=== PATIENT | male | born 1950 | race Caucasian/White ===

== ENCOUNTER → 2020-12-29 | Outpatient (CLI) | payer MEDICARE ==
[~2020-12-29] MED LIST: ZANTAC 150MG T150 M1 PO
== END ==
LOC: M.ULTRA 10:08
PROVIDERS: ATTEND Family Medicine
DX: I70.0 Atherosclerosis of aorta (principal); F17.200 Nicotine dependence, unspecified, uncomplicated

== ENCOUNTER → 2021-01-17 | Outpatient (CLI) | payer MEDICARE | LOC: M.CT 13:45 | PROVIDERS: ATTEND Family Medicine | DX: J84.10 Pulmonary fibrosis, unspecified (principal); F17.200 Nicotine dependence, unspecified, uncomplicated; I70.0 Atherosclerosis of aorta; I25.10 Atherosclerotic heart disease of native coronary artery without angina pectoris; R91.1 Solitary pulmonary nodule ==

== ENCOUNTER → 2021-04-11 | Outpatient (CLI) | payer MEDICARE ==
[2021-04-11 13:47] LABS: ALBUMIN 3.6 g/dL (3.4-5.0); CREATININE 0.8 mg/dL (0.6-1.3); POTASSIUM 4.5 mmol/L (3.5-5.1); TOTAL BILIRUBIN 0.6 mg/dL (<0.1-1.0); TOTAL PROTEIN 7.2 g/dL (6.4-8.2)
[2021-04-13 11:09] LABS: HCV QUANT BY PCR 5330000 IU/mL (())
== END ==
LOC: M.LAB 13:07
PROVIDERS: ATTEND Family Medicine
DX: R76.8 Other specified abnormal immunological findings in serum (principal)

== ENCOUNTER → 2021-05-05 | Outpatient (CLI) | payer MEDICARE | LOC: M.ULTRA 09:25 | PROVIDERS: ATTEND Nurse Practitioner Adult Health | DX: B19.20 Unspecified viral hepatitis C without hepatic coma (principal) ==

== ENCOUNTER 2021-08-27 14:12 | Emergency (ER) | payer MEDICARE ==
[~2021-08-27] VITALS: Ht 172.7 cm; Wt 68.0 kg
[2021-08-27] MEDS ORDERED: EPCLUSA 400 MG1 EACH PO (14:27)
[2021-08-27] MEDS ORDERED: OMEPRAZOLE10 MG PO (14:27)
[2021-08-27 15:23] LABS: ABSOLUTE BASOPHILS 0.1 thou/uL (0.0-0.2); ABSOLUTE EOSINOPHILS 0.3 thou/uL (0.0-0.7); ABSOLUTE LYMPHOCYTES 1.9 thou/uL (0.8-5.3); ABSOLUTE MONOCYTES 0.9 thou/uL (0.0-1.2); ABSOLUTE NEUTROPHILS 6.4 thou/uL (1.6-8.1); BASOPHILS 0.7 %; EOSINOPHILS 2.8 %; LYMPHOCYTES 20.2 %; MCHC 35.7 g/dL (28.0-37.0); MCV 95.1 fL (80.0-100.0); MONOCYTES 9.3 %; MPV 6.6 fl. (7.2-11.1); NUCLEATED RBCS 0 /100WBC; PLATELET COUNT* 356 thou/uL (150-400); RBC 4.42 mil/uL (4.50-6.00); WBC 9.6 thou/uL (4.0-11.0)
[2021-08-27 15:32] LABS: CALCIUM 9.1 mg/dL (8.5-10.1); CREATININE 0.7 mg/dL (0.6-1.3); POTASSIUM 4.1 mmol/L (3.5-5.1)
[2021-08-27 15:37] LABS: ALBUMIN 3.6 g/dL (3.4-5.0); TOTAL BILIRUBIN 0.5 mg/dL (<0.1-1.0); TOTAL PROTEIN 7.4 g/dL (6.4-8.2)
[2021-08-27 15:39] LABS: URINE BILIRUBIN NEGATIVE (Negative); URINE BLOOD NEGATIVE (Negative); URINE CLARITY CLEAR; URINE COLOR YELLOW; URINE GLUCOSE-RANDOM NEGATIVE (Negative); URINE KETONES NEGATIVE (Negative); URINE LEUKOCYTES-REFLEX NEGATIVE (Negative); URINE NITRITE-REFLEX NEGATIVE (Negative); URINE PROTEIN NEGATIVE (Negative); URINE SPECIFIC GRAVITY 1.015 (1.005-1.030); URINE UROBILINOGEN 0.2 E.U./dl (0.2-1.0)
[2021-08-27 17:38] VITALS: BP 144/87
--- NOTE | 2021-08-28 15:28 | EKG ---
[place] [address] ELECTROCARDIOGRAM REPORT Name: RICKEY THORNE CARLOS EDUARDO Room: [facility]#: [id number] Admission: 08/27/21 Attend Phys: Discharge: 08/27/21 Date of : 48 Date of Service: 08/27/21 1505 Report #: [id number] THIS REPORT FOR: //name// [facility] ED Test Date: 2021-08-27 Test Time: 15:05:52 Pat Name: RICKEY THORNE Department: Room: Gender: [employer]ician: : [id number] Requested By: Todd Skaggs Order Number: [id number] : Moe Abdul Measurements Intervals [place] Rate: 70 P: 13 TN: 171 QRS: 7 QRSD: 95 T: 50 QT: 399 QTc: 431 Interpretive Statements Sinus rhythm Compared to ECG 05/15/2012 07:29:31 No significant changes Electronically Signed On 08-28-2021 15:27:45 [employer] by Moe Abdul [email or web address] <ELECTRONICALLY SIGNED> By: Moe Abdul MD, [facility] 08/28/21 1527 1505 1505 Moe Abdul MD, FAC /EPI
== END 2021-08-27 17:39 | disposition home or self-care (01) ==
LOC: M.ERS 14:12
PROVIDERS: Physician Assistant
DX: R10.13 Epigastric pain (principal); F17.210 Nicotine dependence, cigarettes, uncomplicated; Z79.899 Other long term (current) drug therapy